=== PATIENT | male | born 2000 | race Caucasian/White ===

== ENCOUNTER 2020-09-18 11:30 | Emergency (ER) | payer SELFPAY ==
[~2020-09-18] VITALS: Ht 185.4 cm; Wt 84.1 kg
[2020-09-18 11:37] VITALS: BP 121/81; TEMP 98.1
[2020-09-18 13:10] VITALS: PULSE 91
== END 2020-09-18 13:10 | disposition home or self-care (01) ==
LOC: COL.ER 11:30
DX: S06.0X1A Concussion with loss of consciousness of 30 minutes or less, initial encounter (principal); S02.2XXA Fracture of nasal bones, initial encounter for closed fracture; S00.83XA Contusion of other part of head, initial encounter; S10.93XA Contusion of unspecified part of neck, initial encounter; S90.31XA Contusion of right foot, initial encounter; Y04.8XXA Assault by other bodily force, initial encounter